=== PATIENT | male | born 1970 | race Caucasian/White ===

== ENCOUNTER 2019-05-30 11:55 | Emergency (ER) | payer OTHER ==
[~2019-05-30] VITALS: Ht 182.9 cm; Wt 107.5 kg
[~2019-05-30 11:55] MED LIST: APAP650; ASPERCREME177.4 ML; ATIVAN0.5 MG PO; BENZTROPINE MES1 MG PO; CYCLOBENZAPRINE5 MG; CYMBALTA60 MG PO; DEPAKOTE ER500 MG PO; HYDROCODONE-AP1 EAC6; KEPPRA 500 MG500 M1 PO; LORATIDINE 10 M10 M1; LORAZEPAM 22 MG/1 ML INJECTION; MI ACID LIQUID355 ML; MILK OF MA2400 MG/10; MUCINEX TA600 MG/TA2; MULTIVITAMINS1 EAC7; NAPROSYN500 M1 PO; REMERON15 MG PO; RESTORIL7.5 MG PO; SENNA-LAX8.6 MG PO; SEROQUEL 50 MG50 MG; SEROQUEL XR50 MG PO; TRAZODONE HCL100 MG PO; VISTARIL 25 MG25 M1 PO; VITAMIN D3400 UNIT; VITAMIN D3400 UNIT PO; WELLBUTRIN SR150 MG PO; ZYPREXA 5 MG TAB5 M1 PO
[2019-05-30 12:19] LABS: ABSOLUTE NEUTROPHILS 6.1 thou/uL (1.4-8.2); EOSINOPHILS 12.4 % (0.0-3.0); HEMATOCRIT 41.7 % (42.0-52.0); HEMOGLOBIN 14.1 gm/dL (14.0-18.0); LYMPHOCYTES 32.3 % (24.0-44.0); MCH 31.2 pg (26.0-34.0); MCHC 33.7 g/dL (28.0-37.0); MCV 92.8 fL (80.0-100.0); POLYS 49.3 % (36.0-66.0); RDW 12.7 % (10.5-14.5); WBC 12.3 thou/uL (4.0-11.0)
[2019-05-30 12:28] LABS: CALCIUM 9.5 mg/dL (8.5-10.1); CREATININE 1.6 mg/dL (0.7-1.3); POTASSIUM 4.1 mmol/L (3.5-5.1)
[2019-05-30 12:33] LABS: ALBUMIN 4.1 g/dL (3.4-5.0); TOTAL BILIRUBIN 0.3 mg/dL (<0.1-1.0); TOTAL PROTEIN 7.8 g/dL (6.4-8.2)
[2019-05-30 12:46] LABS: PLATELET COUNT 230 thou/uL (150-400)
[2019-05-30 12:47] LABS: LARGE PLATELETS RARE
[2019-05-30 14:15] LABS: URINE BLOOD NEGATIVE (Negative); URINE CLARITY CLEAR; URINE COLOR YELLOW; URINE GLUCOSE-RANDOM* NEGATIVE (Negative); URINE KETONES 1+ (Negative); URINE LEUKOCYTES NEGATIVE (Negative); URINE NITRITE NEGATIVE (Negative); URINE PROTEIN (DIPSTICK) 1+ (Negative); URINE SPECIFIC GRAVITY 1.025 (1.005-1.035)
[2019-05-30 14:18] LABS: ICTOTEST (BILI CONFIRMATORY) Negative (Negative); URINE BILIRUBIN NEGATIVE (Negative)
[2019-05-30 14:24] LABS: BACTERIA None Seen /HPF (None Seen); SQUAMOUS None Seen /LPF (0-3); URINE RBC None Seen /HPF (0-2); URINE WBC None Seen /HPF (0-5)
[2019-05-30 14:25] LABS: HYALINE CASTS 0-3 Few /LPF (None Seen)
[2019-05-30 14:31] LABS: CRYSTALS None Seen /LPF (None Seen)
[2019-05-30 16:10] VITALS: BP 119/74
--- NOTE | 2019-06-01 15:10 | EKG ---
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: [facility] : 1970 Requested By: Marcy Kerns Order Number: [id number] MD: Carlos Ray Measurements Intervals [place] Rate: 113 P: 59 ID: [id number] QRS: 44 QRSD: 79 T: 66 QT: 331 QTc: 454 Interpretive Statements Sinus tachycardia Poor R wave progression Compared to ECG 02/14/2016 13:48:34 Heart rate has increased Electronically Signed On 06-01-2019 15:10:06 CDT by Carlos Ray [email or web address] ��������������������������������������������� <ELECTRONICALLY SIGNED> ���������������������������������������� By: Carlos Ray MD, [facility] ��������������������������������������������� 06/01/19 1510 1202 1202 Carlos Ray MD, FACC /EPI
== END 2019-05-30 16:10 | disposition home or self-care (01) ==
LOC: ER 11:55
PROVIDERS: Emergency Medicine
DX: G40.89 Other seizures (principal); F25.0 Schizoaffective disorder, bipolar type; G89.29 Other chronic pain; F39 Unspecified mood [affective] disorder; F32.9 Major depressive disorder, single episode, unspecified; F41.9 Anxiety disorder, unspecified; F17.210 Nicotine dependence, cigarettes, uncomplicated; Z88.1 Allergy status to other antibiotic agents

== ENCOUNTER 2019-12-27 08:45 | Emergency (ER) | payer OTHER ==
[~2019-12-27] VITALS: Ht 182.9 cm; Wt 83.9 kg
[~2019-12-27 08:45] MED LIST changes: +ATIVAN0.5 M1 PO; -ATIVAN0.5 MG PO; -VITAMIN D3400 UNIT PO; +VITAMIN D35000 UNI2 PO
[2019-12-27 09:19] LABS: ABSOLUTE NEUTROPHILS 13.4 thou/uL (1.4-8.2); BASOPHILS 0.6 % (0.0-2.0); EOSINOPHILS 3.2 % (0.0-3.0); HEMATOCRIT 41.5 % (42.0-52.0); HEMOGLOBIN 13.7 gm/dL (14.0-18.0); LYMPHOCYTES 16.2 % (24.0-44.0); MCV 93.9 fL (80.0-100.0); MONOCYTES 3.8 % (1.0-8.0); PLATELET COUNT 195 thou/uL (150-400); POLYS 76.2 % (36.0-66.0); RBC 4.42 mil/uL (4.50-6.00); RDW 13.2 % (10.5-14.5); WBC 17.6 thou/uL (4.0-11.0)
[2019-12-27] MEDS ORDERED: INGREZZA80 MG PO (09:20)
[2019-12-27] MEDS ORDERED: DIVALPROEX SOD250 M1 PO (09:20)
[2019-12-27] MEDS ORDERED: ACID CONTROLLER20 MG PO (09:21)
[2019-12-27 09:23] LABS: CALCIUM 9.5 mg/dL (8.5-10.1); CREATININE 1.5 mg/dL (0.7-1.3); POTASSIUM 3.7 mmol/L (3.5-5.1)
[2019-12-27] MEDS ORDERED: KEPPRA XR500 MG PO (09:26)
[2019-12-27] MEDS ORDERED: ATROVENT HFA14 GM INH (09:27)
[2019-12-27] MEDS ORDERED: DIVALPROEX SOD250 M3 PO (09:28)
[2019-12-27] MEDS ORDERED: PROAIR HFA8.5 GM INH (09:29)
[2019-12-27 09:30] LABS: ALBUMIN 4.3 g/dL (3.4-5.0); MAGNESIUM 1.9 mg/dL (1.8-2.4); TOTAL BILIRUBIN 0.4 mg/dL (<0.1-1.0); TOTAL PROTEIN 7.9 g/dL (6.4-8.2)
[2019-12-27 09:36] LABS: AMP/METHAMP Negative (Negative); BARBITURATES Negative (Negative); BENZODIAZEPINES Negative (Negative); COCAINE Negative (Negative); METHADONE Negative (Negative); OPIATES POSITIVE (Negative); PCP Negative (Negative)
[2019-12-27 10:33] VITALS: BP 133/66
== END 2019-12-27 11:54 | disposition home or self-care (01) ==
LOC: ER 08:45
PROVIDERS: Emergency Medicine
DX: G40.909 Epilepsy, unspecified, not intractable, without status epilepticus (principal); F20.9 Schizophrenia, unspecified; Z51.81 Encounter for therapeutic drug level monitoring; F31.9 Bipolar disorder, unspecified; F41.9 Anxiety disorder, unspecified; F17.210 Nicotine dependence, cigarettes, uncomplicated; G89.29 Other chronic pain; Z88.1 Allergy status to other antibiotic agents

== ENCOUNTER 2020-11-05 18:29 | Emergency (ER) | payer OTHER ==
[~2020-11-05] VITALS: Ht 172.7 cm; Wt 104.3 kg
[~2020-11-05 18:29] MED LIST changes: +ACID CONTROLLER20 MG PO; +ATROVENT HFA14 GM INH; +DIVALPROEX SOD250 M1 PO; +DIVALPROEX SOD250 M3 PO; +INGREZZA80 MG PO; +KEPPRA XR500 MG PO; +PROAIR HFA8.5 GM INH
[2020-11-06 00:45] VITALS: BP 110/74
== END 2020-11-06 00:45 | disposition home or self-care (01) ==
LOC: ER 18:29
DX: U07.1 COVID-19 (principal); S52.131A Displaced fracture of neck of right radius, initial encounter for closed fracture; F17.210 Nicotine dependence, cigarettes, uncomplicated; Z79.899 Other long term (current) drug therapy; Z88.1 Allergy status to other antibiotic agents; W19.XXXA Unspecified fall, initial encounter; Y93.89 Activity, other specified; Y92.89 Other specified places as the place of occurrence of the external cause; Y99.8 Other external cause status

== ENCOUNTER 2021-07-24 00:34 | Inpatient (IN) | payer OTHER ==
[2021-07-24] VITALS (7 sets, daily range): BP systolic 112–122; BP diastolic 45–79
[~2021-07-24] VITALS: Ht 175.3 cm; Wt 105.7 kg
--- NOTE | ~2021-07-24 | HC ---
[facility] [place] [address] CONSULTATION Name: SHANTI LAMAS Room #: 452-P [facility] IN M.R.#: [id number] Admission: 07/24/21 Attend Phys: Hector Moran MD Discharge: 07/28/21 Date of : 72 Report #: [id number] THIS REPORT FOR: cc: Kavon Dye MD, Dennis R MD Althoff,Christiano Power MD ~ DATE OF SERVICE: 07/25/2021 CHIEF COMPLAINT: Right lower extremity wound. HISTORY OF PRESENT ILLNESS: This is a 50-year-old male patient who is admitted to the hospital with schizoaffective disorder, bipolar disorder and cellulitic changes to his right lower extremity, and I have been asked see him with regard to wound care. The patient states he is having some pain in this area. He is unsure as to how long the issue has been going on. PAST MEDICAL HISTORY: Schizoaffective disorder, bipolar disorder, traumatic brain injury, chronic pain, dyskinesia, depression, seizure disorder. SOCIAL HISTORY: The patient is currently a daily smoker. No alcohol use. FAMILY HISTORY: Unknown. MEDICATIONS: Include Cymbalta, Naprosyn, Seroquel, Depakote, Ultram, Keppra, trazodone, ProAir, Tylenol, cholecalciferol, famotidine, gabapentin, melatonin. ALLERGIES: CODEINE, TETRACYCLINE. REVIEW OF SYSTEMS: CONSTITUTIONAL: The patient denies fever, chills, weight loss. NEUROLOGICAL: The patient denies focal weakness, numbness, tingling. EYES: The patient denies visual changes, redness, drainage. ENT: The patient denies earache, nasal drainage, sore throat. CARDIOVASCULAR: The patient denies chest pain, palpitation, diaphoresis. PULMONARY: The patient denies cough, shortness of breath. GASTROINTESTINAL: The patient denies nausea, vomiting, diarrhea or abdominal pain. ORTHOPEDIC: The patient complains of pain, swelling and blistering to the right lower extremity. Others systems in a 14-point review of systems are negative. PHYSICAL EXAMINATION: VITAL SIGNS: At this time include temperature 36.6, pulse 77, respiration of 18, blood pressure of 97/68. GENERAL: This is a well-developed male patient appears to be in minimal distress. [address] [address] CONSULTATION Name: SHANTI LAMAS Room #: 452- DIS IN M.R.#: [id number] Admission: 07/24/21 Attend Phys: Hector Moran MD Discharge: 07/28/21 Date of : 72 Report #: [id number] HEENT: Head normocephalic. Nose and throat clear. NECK: Supple. LUNGS: Clear. ABDOMEN:. Soft. Bowel sounds present. EXTREMITIES: Lower extremities demonstrate moderate erythema and a blister to the right lower extremity. The blister currently is intact. There is mild tenderness. Distal pulses are palpable. NEUROLOGIC: The patient is alert. He is disoriented. LABORATORY STUDIES: Sodium 141, potassium 3.8, chloride 107, CO2 of 26, BUN 15, creatinine 0.9, glucose 121. White blood cell count 17,000 with a hemoglobin of 12.2. CLINICAL IMPRESSION: 1. Cellulitis, right lower extremity. 2. Bulla, likely secondary to underlying cellulitis. 3. Affective disorder. 4. Traumatic brain injury. 5. Seizure disorder. RECOMMENDATIONS: At this point in time, we recommend continuation of IV antibiotics as ordered. Recommend topical AmLactin lotion. No specific bandaging or compression at this time. Border foam for protection to the blister of the right leg. I appreciate being asked to see him in consultation. By: 1323 0120 Christiano Hernandez MD /nt
--- NOTE | ~2021-07-24 | EMS ---
[address] [address] EMS Patient Care Report Name: SHANTI LAMAS Room #: 452-P ADM IN M.R.#: [id number] Admission: 07/24/21 Attend Phys: Hector Moran MD Discharge: Date of : 72 Report #: [id number] THIS REPORT FOR: //name// Report Transmitted: 07/25/2021 12:51 EMS Care Summary [place], [place]/[facility] Incident [id number] @ 07/24/2021 00:14 Incident Location [address] [facility] [address] Patient SHANTI LAMAS Male, 50 Years 1970 Patient Address [id number] [place] [address] [place] [address] Patient History Behavioral/Psychiatric Disorder,Seizures,Schizophrenia,Anxiety,Dysphagia,Insomnia, Patient Allergies Tetracycline, Patient Medications Other, Chief Complaint RIGHT LOWER LEG SWELLING Disposition Transported No Lights/[place] Dispatch Reason Sick Person Transported To [facility] Narrative SCENE: ON ARRIVAL PT FOUND AMBULATING DOWN HALLWAY AT ADDRESS PROVIDED. PT IS AWAKE AND ALERT WITH A GCS OF 15. STAFF REPORTS PT HAS NEW ONSET CONGESTION AND [address] [address] EMS Patient Care Report Name: SHANTI LAMAS Room #: 452-P ADM IN John.#: [id number] Admission: 07/24/21 Attend Phys: Hector Moran MD Discharge: Date of : 72 Report #: [id number] REDNESS AND SWELLING TO THE RIGHT LOWER LEG. PT SAT ON EMS STRETCHER. AMBULANCE: VITALS MONITORED. NO CHANGES. Initial Vitals @00:34P: 98,R: 18,BP: 118/70,Pain: 0/10,GCS: 15,Revised Trauma: 12, @00:22P: 98,R: 18,BP: 114/60,Pain: 0/10,GCS: 15,Revised Trauma: 12, Assessments @00:21MENTAL:No Abnormalities,SKIN:No Abnormalities,HEENT:Head/Face: No Abnormalities,Eyes: No Abnormalities,Neck/Airway: No Abnormalities,LUNG SOUNDS:General: No Abnormalities,Left Upper: No Abnormalities,Right Upper: No Abnormalities,Left Lower: No Abnormalities,Right Lower: No Abnormalities,ABDOMEN:General: No Abnormalities,Left Upper: No Abnormalities,Right Upper: No Abnormalities,Left Lower: No Abnormalities,Right Lower: No Abnormalities,PELVIS//GI:No Abnormalities,EXTREMITIES:Right Leg: Other,Left Arm: No Abnormalities,Right Arm: No Abnormalities,Left Leg: No Abnormalities,PULSE:NEURO:No Abnormalities,@00:34MENTAL:No Abnormalities,SKIN:No Abnormalities,HEENT:Head/Face: No Abnormalities,Eyes: No Abnormalities,Neck/Airway: No Abnormalities,LUNG SOUNDS:General: No Abnormalities,Left Upper: No Abnormalities,Right Upper: No Abnormalities,Left Lower: No Abnormalities,Right Lower: No Abnormalities,ABDOMEN:General: No Abnormalities,Left Upper: No Abnormalities,Right Upper: No Abnormalities,Left Lower: No Abnormalities,Right Lower: No Abnormalities,PELVIS//GI:No Abnormalities,EXTREMITIES:Right Leg: Other,Left Arm: No Abnormalities,Right Arm: No Abnormalities,Left Leg: No Abnormalities,PULSE:NEURO:No Abnormalities, Impression Acute Pain, not elsewhere classified Procedures @00:22StretcherResponse: Unchanged@00:20ALS AssessmentResponse: UnchangedSucceeded Timeline 00:13,Call Received 00:13,Dispatch Notified 00:14,Dispatched 00:15,En Route 00:18,On Scene 00:20,At Patient 00:20,ALS Assessment,Response: UnchangedSucceeded, 00:22,Stretcher,Response: Unchanged 00:22,BP: 114/60 M,PULSE: 98,RR: 18 R,SPO2: Ox,ETCO2: ,BG: ,PAIN: 0,GCS: 15, 00:23,Depart Scene 00:31,[place] [address] EMS Patient Care Report Name: SHANTI LAMAS Room #: 452-P ADM IN [facility]#: [id number] Admission: 07/24/21 Attend Phys: Hector Moran MD Discharge: Date of : 72 Report #: [id number] 00:34,BP: 118/70 M,PULSE: 98,RR: 18 R,SPO2: Ox,ETCO2: ,BG: ,PAIN: 0,GCS: 15, 00:41,Call Closed Disclaimer v1.1 Copyright 2020 [employer] This EMS Care Summary contains data elements from the applicable legal record (which may be displayed differently). It is designed to provide pertinent information for the following purposes: continuity of care, clinical quality, and state data reporting. The complete legal record is available to ED staff and administrators of the receiving hospital in [employer]'s Patient Tracker. All data is provided "as is."
[~2021-07-24 00:34] MED LIST changes: -MULTIVITAMINS1 EAC7; +SUPER THERAVIT1 EACH PO
[2021-07-24 02:04] LABS: AMP/METHAMP Negative (Negative); BARBITURATES Negative (Negative); BENZODIAZEPINES Negative (Negative); COCAINE Negative (Negative); METHADONE Negative (Negative); OPIATES Negative (Negative); PCP Negative (Negative)
[2021-07-24 02:46] LABS: ABSOLUTE NEUTROPHILS 14.5 thou/uL (1.4-8.2); BASOPHILS 0.3 % (0.0-2.0); EOSINOPHILS 0.5 % (0.0-3.0); HEMATOCRIT 41.1 % (42.0-52.0); LYMPHOCYTES 9.3 % (24.0-44.0); MCH 31.5 pg (26.0-34.0); MCHC 34.1 g/dL (28.0-37.0); MCV 92.4 fL (80.0-100.0); MONOCYTES 5.7 % (1.0-8.0); PLATELET COUNT 177 thou/uL (150-400); POLYS 84.2 % (36.0-66.0); RBC 4.45 mil/uL (4.50-6.00); RDW 13.8 % (10.5-14.5); WBC 17.2 thou/uL (4.0-11.0)
[2021-07-24 02:57] LABS: CALCIUM 9.6 mg/dL (8.5-10.1); CREATININE 1.4 mg/dL (0.7-1.3); POTASSIUM 3.5 mmol/L (3.5-5.1)
[2021-07-24 03:03] LABS: ALBUMIN 3.8 g/dL (3.4-5.0); DIRECT BILIRUBIN 0.2 mg/dL (<0.1-0.2); TOTAL BILIRUBIN 0.7 mg/dL (0.2-1.0); TOTAL PROTEIN 8.6 g/dL (6.4-8.2)
--- NOTE | 2021-07-24 11:32 | EKG ---
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: [place] : 1970 Requested By: Melia Sears Order Number: [id number] MD: Diogo Puente Measurements Intervals [place] Rate: 85 P: 54 NM: 174 QRS: 21 QRSD: 89 T: 53 QT: 355 QTc: 422 Interpretive Statements Sinus rhythm Compared to ECG 05/30/2019 12:02:37 Sinus tachycardia no longer present Poor R-wave progression no longer present Electronically Signed On 07-24-2021 11:32:37 CDT by Diogo Puente [email or web address] <ELECTRONICALLY SIGNED> By: Diogo Puente MD, [facility] 07/24/21 1132 0111 0111 Diogo Puente MD, FACC /EPI
[2021-07-24] MEDS ORDERED: DEPAKOTE ER500 M1 PO (12:42)
[2021-07-24] MEDS ORDERED: NEURONTIN 300M300 M2 PO (12:43)
[2021-07-24] MEDS ORDERED: LEVSIN0.125 MG PO (12:44)
[2021-07-24] MEDS ORDERED: ADVIL200 M1 PO (12:50)
[2021-07-24] MEDS ORDERED: MELATONIN3 M1 PO (13:36)
[2021-07-24] MEDS ORDERED: TRAMADOL 50 MG50 MG PO (13:37)
[2021-07-24] MEDS ORDERED: TRIHEXYPHENIDYL2 M1 PO (13:38)
[2021-07-24] MEDS ORDERED: TYLENOL325 M1 PO (17:32)
[2021-07-24] MEDS ORDERED: ATROVENT HFA14 GM INH (17:33)
[2021-07-24] MEDS ORDERED: TRAZODONE HCL50 MG PO (17:39)
[2021-07-24] MEDS ORDERED: KEPPRA 500 MG500 M1 PO (21:01)
--- NOTE | 2021-07-25 01:24 | NUR ---
UPON SHIFT REPORT, PT ROOM FAR FROM NURSES STATION, PT IMPULSIVE AND FORGETFUL OF LIMITATIONS. PT BROTHER, CLIFF AT BEDSIDE OBSERVED ASSISTING PT WITH TOILETING NEEDS. COORDINATED WITH BUSINESS CONTINUITY CONSULTANT, PT TRANSFERRED TO ROOM 452, NEAR NURSES STATION. UPON SHIFT ASSESSMENT, PT AOX3, TO PERSON, PLACE AND TIME. PT REPORTS 'I HAD A SEIZURE AT THE SENIOR LIVING' IN REGARDS TO SITUATION. PT WITH FORGETFULNESS AND RESTLESSNESS. PT REPORTS 8/10 LOWER BACK PAIN. PT RECEIVING SCHEDULED PO TRAMADOL TID WITH PRN PO APAP Q4HR AVAILABLE. PT DENIES SOB WHILE ON ROOM AIR. PT TOLERATING PO INTAKE OF FLUIDS AND REGULAR DIET WITHOUT ISSUE. PT WITH INTERMITTENT NAUSEA WITHOUT EMESIS. PT VOIDING PER URINAL. PT RESTING IN BED THROUGHOUT SHIFT, FREQUENT REPOSITIONING ENCOURAGED, PT NOTED TO SHIFT INDEPENDENTLY. SENSATION INTACT, CAPILLARY REFILL LESS THAN 3SEC, PERIPHERAL PULSES PALPABLE IN LUE, PULSES FAINT ELSEWHERE. +3 PITTING EDEMA NOTED TO RLE, NONWEEPING, IN ADDITION TO REDNESS AND WARMTH. PT ENCOURAGED TO NOTIFY STAFF FOR ALL NEEDS, CALL LIGHT WITHIN REACH, BED ALARM ON, BED LOCKED IN LOWEST POSITION, ROOM REMAINS NEAR NURSES STATION, FREQUENT MONITORING WILL CONTINUE.
[2021-07-25 06:27] LABS: HEMATOCRIT 36.6 % (42.0-52.0); HEMOGLOBIN 12.2 gm/dL (14.0-18.0); MCHC 33.4 g/dL (28.0-37.0); MCV 92.7 fL (80.0-100.0); RBC 3.95 mil/uL (4.50-6.00); RDW 13.9 % (10.5-14.5)
[2021-07-25 06:46] LABS: CALCIUM 8.7 mg/dL (8.5-10.1); CREATININE 0.9 mg/dL (0.7-1.3); POTASSIUM 3.8 mmol/L (3.5-5.1)
[2021-07-25 16:17] VITALS: BP 97/68
--- NOTE | 2021-07-25 18:35 | NUR ---
ASSUMED CARE OF PT AROUND 0700. PT RESTED IN ROOM THROUGHOUT THE DAY AND WAS CALM AND COOPERATIVE, VSS. PTS PAIN CONTROLLED WITH ORAL PAIN MEDS. HAVING TROUBLE INFUSING FLUIDS DUE TO PT CONTINUALLY BENDING ARM. ORAL INTAKE ADEQUATE. FALL PRECAUTIONS IN PLACE.
[2021-07-25 20:17] VITALS: BP 102/47
--- NOTE | 2021-07-26 06:16 | NUR ---
Assumed pt care at 1900. A/OX4,does have expressive aphasia at times but able to voice needs. C/o back pain,medicated per EMAR with relief reported. Pt's IV on RFA infiltrated,new IV inserted on LFA after 2 attempts by house sup. Needs reminders to call for help as needed b4 getting out of bed. Fall precauitons in place.
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
[2021-07-26 10:47] LABS: ABSOLUTE NEUTROPHILS 9.5 thou/uL (1.4-8.2); BASOPHILS 0.4 % (0.0-2.0); EOSINOPHILS 4.8 % (0.0-3.0); HEMOGLOBIN 12.3 gm/dL (14.0-18.0); LYMPHOCYTES 22.1 % (24.0-44.0); MCH 30.6 pg (26.0-34.0); MCHC 33.1 g/dL (28.0-37.0); MCV 92.5 fL (80.0-100.0); MONOCYTES 5.3 % (1.0-8.0); PLATELET COUNT 180 thou/uL (150-400); POLYS 67.4 % (36.0-66.0); WBC 14.1 thou/uL (4.0-11.0)
[2021-07-26 11:12] LABS: CALCIUM 8.7 mg/dL (8.5-10.1); CREATININE 0.9 mg/dL (0.7-1.3)
--- NOTE | 2021-07-26 16:47 | NUR ---
PT ADMITTED RELATED TO CELLULITIS. CM REVIEWED CHART AND SPOKE WITH CARE TEAM. CM CALLED AND SPOKE WITH PT'S GUARDIAN/BROTHER CLIFF. HE INDICATED THAT PT RESIDES AT [facility] AND THAT HE HAS BEEN THERE SINCE 2010. HE INDICATED THAT HE ANTICIPATES PT RETURNING THERE ONCE MEDICALLY STABLE. CM CALLED AND SPOKE WITH APERTURE MASK ETCHER AT [facility] THIS DAY [place] AND UPDATED HIM. HE FAXED COPY OF CLIFF'S GUARDIANHIP PAPERWORK. CM PLACED IT ON CHART. CARE TEAM INDICATED THEY ANTICAPTE PT BEING HERE A FEW MORE DAYS. PT IS ON IV UNASYN AND GETTING WC. CM FOLLOWING REGARDING DC PLANNING.
--- NOTE | 2021-07-26 18:30 | NUR ---
ASSUMED CARE OF PT AT 0700. THROUGHOUT THE DAY PT HAD NO COMPLAINTS AND RESTED QUIETLY IN ROOM. NO CONCERNS FOR THE PT TODAY, VSS. WORKS WELL WITH BOTH THERAPIES AND IS COMPLIANT WITH ALL DIRECTIONS. WILL CONTINUE TO MONITOR
[2021-07-26 19:27] VITALS: BP 104/43
[2021-07-27 05:33] LABS: CALCIUM 8.7 mg/dL (8.5-10.1); CREATININE 0.9 mg/dL (0.7-1.3); POTASSIUM 4.4 mmol/L (3.5-5.1)
--- NOTE | 2021-07-27 06:49 | NUR ---
Assumed pt care at 1900. A/OX4,does have expressive aphasia but able to make needs known. Up with SBA, unsteady at times. Pt had a shower at with set up assist. Pt upset and yelling at [employer] during shower and banged his door shut,comic writer approached pt afterwards and he apologized for his actions. Took all meds w/o any problems. Fall precautions in place
[2021-07-27 08:00] VITALS: BP 110/72
[2021-07-27 08:49] LABS: HEMATOCRIT 33.3 % (42.0-52.0); HEMOGLOBIN 11.3 gm/dL (14.0-18.0); MCH 31.3 pg (26.0-34.0); MCHC 33.8 g/dL (28.0-37.0); MCV 92.6 fL (80.0-100.0); RBC 3.6 mil/uL (4.50-6.00); RDW 13.7 % (10.5-14.5); WBC 10.7 thou/uL (4.0-11.0)
--- NOTE | 2021-07-27 16:10 | NUR ---
ID INDICATED THAT THEY WERE GOING TO TRANSITION PT TO [facility] THIS DAY. ANTICIPATE THAT PT WILL LIKELY BE MEDICALLY STABLE TO DC BACK TO [facility] TOMORROW. CM FOLLOWING REGARDING DC PLANNING.
[2021-07-27 19:53] VITALS: BP 118/70
--- NOTE | 2021-07-28 04:28 | NUR ---
Pt A/OX4,VSS. C/o pain on back/legs,medicated per EMAR with relief reported. Ambien given per request and pt able to get some sleep for a couple hours. Up with SBA,needs reminders to call for help. Redness persists on RLE. Pt resting at this time w/o distress noted,will continue to monitor pt.
[2021-07-28 05:55] LABS: HEMATOCRIT 35.8 % (42.0-52.0); HEMOGLOBIN 11.9 gm/dL (14.0-18.0); MCH 31.4 pg (26.0-34.0); MCHC 33.4 g/dL (28.0-37.0); RBC 3.81 mil/uL (4.50-6.00); RDW 13.3 % (10.5-14.5); WBC 10.4 thou/uL (4.0-11.0)
[2021-07-28 06:21] LABS: CALCIUM 8.8 mg/dL (8.5-10.1); CREATININE 0.9 mg/dL (0.7-1.3); POTASSIUM 4.6 mmol/L (3.5-5.1)
[2021-07-28 09:00] VITALS: BP 125/86
[2021-07-28] MEDS ORDERED: AUGMENTIN 875-1 EACH PO (15:01)
[2021-07-28 15:26] VITALS: BP 111/90
--- NOTE | 2021-07-28 15:56 | NUR ---
CARE TEAM INDICATED THAT PT IS MEDICALLY STABLE TO DC BACK TO [facility] THIS DAY. ORDERS AND NEGATIVE COVID TESTS FAXED. CM ARRANGED [facility] TRANSPORT THIS DAY. POKER ROOM MANAGER BETWEEN 3:49-7:49. PT AND HIS BROTHER/GUARDIAN ARE AWARE AND AGREEABLE. NURSE GIVEN NUMBER FOR REPORT. NO OTHER CM INTERVENTION INDICATED. CASE CLOSED.
--- NOTE | 2021-07-28 18:57 | NUR ---
PT CARE AND ROUNDS COMPLETED PER PROTOCOL. PAIN CONTROLLED WITH ORAL PAIN MEDICATION. PT RESTING PEACEFULLY THROUGHOUT SHIFT. SEVERAL ATTEMPTS MADE TO FACILITY TO ATTEMPT TO GIVE REPORT, NO ANSWER. PT LEFT FLOOR TO FACILITY WITH IMMIGRATION MANAGER PER [employer]. ALL PERSONAL ITEMS GIVEN TO PATIENT PRIOR TO DISMISSAL.
== END 2021-07-28 19:36 | DRG 871 ==
LOC: ER 00:34 → EROBS 03:30 → 4W 03:30
PROVIDERS: Emergency Medicine; Nurse Practitioner Family; ADMIT Hospitalist; ATTEND Hospitalist
DX: A41.9 Sepsis, unspecified organism (principal); N17.0 Acute kidney failure with tubular necrosis; L03.115 Cellulitis of right lower limb; R45.851 Suicidal ideations; G40.909 Epilepsy, unspecified, not intractable, without status epilepticus; I87.8 Other specified disorders of veins; G89.4 Chronic pain syndrome; F41.9 Anxiety disorder, unspecified; F17.210 Nicotine dependence, cigarettes, uncomplicated; F39 Unspecified mood [affective] disorder; F25.0 Schizoaffective disorder, bipolar type; I87.2 Venous insufficiency (chronic) (peripheral); Z87.820 Personal history of traumatic brain injury; Z88.1 Allergy status to other antibiotic agents; Z88.6 Allergy status to analgesic agent; Z79.899 Other long term (current) drug therapy; Z23 Encounter for immunization; Z20.822 Contact with and (suspected) exposure to COVID-19
CPT/HCPCS: 10040

== ENCOUNTER 2021-08-04 10:11 | Inpatient (IN) | payer OTHER ==
[~2021-08-04] VITALS: Ht 175.3 cm; Wt 96.6 kg
--- NOTE | ~2021-08-04 | EMS ---
[address] [address] EMS Patient Care Report Name: SHANTI LAMAS Room #: REG ANSELMO Mock#: [id number] Admission: 08/04/21 Attend Phys: Discharge: Date of : 72 Report #: [id number] THIS REPORT FOR: //name// Report Transmitted: 08/04/2021 10:20 EMS Care Summary [place], [place]/[facility] Incident [id number] @ 08/04/2021 09:42 Incident Location [address] [facility] Patient SHANTI LAMAS Male, 50 Years 1970 Patient Address [id number] [place] [address] [address] [place] [address] Patient History Behavioral/Psychiatric Disorder,Seizures,Schizophrenia,Anxiety,Dysphagia,Insomnia, Patient Allergies Tetracycline, Patient Medications Other, Chief Complaint SWELLING REDNESS TO RIGHT LOWER LEG Disposition Transported No Lights/[place] Dispatch Reason Sick Person Transported To [facility] Narrative SCENE: ON ARRIVAL PT FOUND IN THE LOBBY OF ADDRES PROVIDED. PT IS AWAKE AND ALERT WITH A GCS OF 15. PT HAS 07/28/2021 ADMITTED TO [facility]. RELEASED P ANTIBIOTICS. PLACED ON AMOXICILLIN. INCREASED SWELLING TODAY. [address] [address] EMS Patient Care Report Name: SHANTI LAMAS Room #: EVENS Mock#: [id number] Admission: 08/04/21 Attend Phys: Discharge: Date of : 72 Report #: [id number] AMBULANCE: VITALS MONITORED. NO CHANGES. Initial Vitals @09:59P: 87,R: 18,BP: 132/79,Pain: 2/10,GCS: 15,Revised Trauma: 12, @10:07P: 88,R: 18,BP: 136/74,GCS: 15,Revised Trauma: 12, Assessments @09:56MENTAL:No Abnormalities,SKIN:No Abnormalities,HEENT:Head/Face: No Abnormalities,Eyes: No Abnormalities,Neck/Airway: No Abnormalities,LUNG SOUNDS:General: No Abnormalities,Left Upper: No Abnormalities,Right Upper: No Abnormalities,Left Lower: No Abnormalities,Right Lower: No Abnormalities,ABDOMEN:General: No Abnormalities,Left Upper: No Abnormalities,Right Upper: No Abnormalities,Left Lower: No Abnormalities,Right Lower: No Abnormalities,PELVIS//GI:No Abnormalities,EXTREMITIES:Right Leg: Edema,Right Leg: Other,Left Arm: No Abnormalities,Right Arm: No Abnormalities,Left Leg: No Abnormalities,PULSE:NEURO:@10:03MENTAL:No Abnormalities,SKIN:No Abnormalities,HEENT:Head/Face: No Abnormalities,Eyes: No Abnormalities,Neck/Airway: No Abnormalities,LUNG SOUNDS:General: No Abnormalities,Left Upper: No Abnormalities,Right Upper: No Abnormalities,Left Lower: No Abnormalities,Right Lower: No Abnormalities,ABDOMEN:General: No Abnormalities,Left Upper: No Abnormalities,Right Upper: No Abnormalities,Left Lower: No Abnormalities,Right Lower: No Abnormalities,PELVIS//GI:No Abnormalities,EXTREMITIES:Right Leg: Edema,Left Arm: No Abnormalities,Right Arm: No Abnormalities,Left Leg: No Abnormalities,PULSE:NEURO: Impression Extremity Pain Procedures @09:55ALS AssessmentResponse: UnchangedSucceeded@09:58StretcherResponse: Unchanged Timeline 09:41,Call Received 09:41,Dispatch Notified 09:42,Dispatched 09:45,En Route 09:49,On Scene 09:55,At Patient 09:55,ALS Assessment,Response: UnchangedSucceeded, 09:58,Stretcher,Response: Unchanged 09:59,BP: 132/79 M,PULSE: 87,RR: 18 R,SPO2: Ox,ETCO2: ,BG: ,PAIN: 2,GCS: 15, 09:59,Depart Scene 10:07,BP: 136/74 M,PULSE: 88,RR: 18 R,SPO2: Ox,ETCO2: ,BG: ,PAIN: ,GCS: 15, 10:07,At Destination [address] [address] EMS Patient Care Report Name: SHANTI LAMAS Room #: REG [facility].#: [id number] Admission: 08/04/21 Attend Phys: Discharge: Date of : 72 Report #: [id number] 10:17,Call Closed Disclaimer v1.1 Copyright 2020 [employer] This EMS Care Summary contains data elements from the applicable legal record (which may be displayed differently). It is designed to provide pertinent information for the following purposes: continuity of care, clinical quality, and state data reporting. The complete legal record is available to ED staff and administrators of the receiving hospital in [facility]'s Patient Tracker. All data is provided "as is."
[~2021-08-04 10:11] MED LIST changes: +ADVIL200 M1 PO; +AUGMENTIN 875-1 EACH PO; +DEPAKOTE ER500 M1 PO; +LEVSIN0.125 MG PO; +MELATONIN3 M1 PO; +NEURONTIN 300M300 M2 PO; +TRAMADOL 50 MG50 MG PO; +TRAZODONE HCL50 MG PO; +TRIHEXYPHENIDYL2 M1 PO; +TYLENOL325 M1 PO
[2021-08-04 10:17] VITALS: BP 139/65
--- NOTE | 2021-08-04 11:34 | NUR ---
IV ACCESS HERE TO INITIATE IV
[2021-08-04 11:45] LABS: ABSOLUTE NEUTROPHILS 11.7 thou/uL (1.4-8.2); BASOPHILS 1.1 % (0.0-2.0); EOSINOPHILS 0.7 % (0.0-3.0); HEMATOCRIT 31.1 % (42.0-52.0); HEMOGLOBIN 10.5 gm/dL (14.0-18.0); LYMPHOCYTES 14.6 % (24.0-44.0); MCH 31.3 pg (26.0-34.0); MCHC 33.9 g/dL (28.0-37.0); MCV 92.4 fL (80.0-100.0); MONOCYTES 7.9 % (1.0-8.0); PLATELET COUNT 440 thou/uL (150-400); POLYS 75.7 % (36.0-66.0); RBC 3.37 mil/uL (4.50-6.00); RDW 13.4 % (10.5-14.5); WBC 15.4 thou/uL (4.0-11.0)
[2021-08-04 12:08] LABS: CALCIUM 8.8 mg/dL (8.5-10.1); CREATININE 0.9 mg/dL (0.7-1.3); POTASSIUM 4.2 mmol/L (3.5-5.1)
[2021-08-04 16:28] VITALS: BP 128/67
[2021-08-04 17:20] VITALS: BP 131/65
--- NOTE | 2021-08-04 17:25 | NUR ---
PATIENT ARRIVED TO 4S @ 1700. A/O X 4. ROOM AIR. ONE ASSIST WITH TRANSFERS. FROM [facility]. 20 G LEFT FOREARM. LEFT LEG CELLULITIS -RED, SWOLLEN, WARM, TIGHT. PAIN TO LEFT LEG 9/10. LEFT EYE BLACK, LEFT FOREARM BRUISED. PATIENT ANSWERED ALL SUICDE QUESTIONS YES THAT PROMPTED 1:1. DIGITAL PROGRAM MANAGER AIRAM NOTIFIED AND DR. OLVERA CALLED AND WILL ORDER A PSYCH CONSULT AND DOESNT THINK PATIENT NEEDS A 1:1 AT THIS TIME. PATIENT REQUESTED A PSYCH CONSULT HIMSELF.
[2021-08-04 19:17] VITALS: BP 125/45
--- NOTE | 2021-08-05 02:47 | NUR ---
ASSUMED CARE OF PT AT 1900. BEDSIDE REPORT RECIEVED. ROSE ASSESSMENT COMPLETE. VSS. PT C/O 08/07 RLE PAIN D/T CELLULITIS. RLE IS RED, HOT, SWOLLEN. ID CAME BY TO SEE PT. CLEANSED RLE, APPLIED XEROFORM, ABDS, KERLIXE WRAPPED TO UP LEG. PT IS SPEAKIG RAPID JUMBLED SENTENCES AND HAS TICS AND TREMORS D/T TARDIVE DYSKINESIA. PROVIDED THERAPUETIC COMMUNICATION C PT AND ATTEMPTED TO SETTLE ANXIETY. PT CONSTANTLY TRYING TO GET UP OR DELORES C IV SITE, IV SETTINGS, ETC. SOMETIMES REDERICTABLE. CONTINUING TO PROVIDE SAFETY GUIADANCE AND PT EDUCATION. MEDS ADMINISTERED ORDERED IN DEC. ALL NEEDS MET. CALL LIGHT INREACH, HIGH FALL PRECAUTIONS INPLACE.
--- NOTE | 2021-08-05 06:38 | NUR ---
NICK Coley PHARMACIST GILBERTO ON PXYUS I PULLED 2 NORCO ON WRONG PT 439 AND ADMINISTERED 1 NORCO TO 442, BC I REALIZED THAT PT ONLY HAD ORDER FOR 1 NORCO. RETURNED 1 NORCO BACK UNDER 439 BC 442 DID NOT HAVE ORDER FOR 2 NORCOS. NISHANT RN WITNESSEED MY RETURN AND GILBERTO PHARMACIST AND PHARM TECHS SPOKE C ON PHONE ON WHAT TO DO
--- NOTE | 2021-08-05 08:07 | NUR ---
I CONCUR WITH THE ASSESSMENT AND NOTES OF SALVADOR NASSAR.
[2021-08-05 08:10] VITALS: BP 144/74
--- NOTE | 2021-08-05 09:14 | NUR ---
ASSESSMENT: CM REVIEWED CHART AND SPOKE WITH PT AT THE BEDSIDE. PT WAS ADMITTED DUE TO INCREASED CELLULITIS. PT WAS RECENTLY HERE AT [facility] AND DISCHARGED 07/28 BACK TO [facility] ON AMOXICILLIN BUT HAS HAD INCREASED SWELLING. PT IS A LTC RESIDENT AT [facility]. PT HAS HX OF TBI. CM ATTEMPTED TO CONTACT PATIENTS BROTHER/DPOA CLIFF [phone] BUT UNABLE TO REACH AND VM WAS LEFT. CM FAXED UPDATED CLINICAL TO [facility]. PT IS CURRENTLY ON IV ANBX AND ID IS CONSULTED AND FOLLOWING. PT WILL LIKELY BE UNABLE TO RETURN TO [facility] UNTIL HE IS OFF IV ANBX DUE TO FAICLITY PROTOCOL. BAKARI IS THE ARCHEOLOGIST AT [facility] AND CAN BE REACHED AT [phone] OR [phone] WITH ANY QUESTIONS. CM WILL CONTINUE TO FOLLOW TO ASSIST NEEDED.
[2021-08-05 15:01] LABS: CALCIUM 9.3 mg/dL (8.5-10.1); CREATININE 0.9 mg/dL (0.7-1.3); POTASSIUM 4.2 mmol/L (3.5-5.1)
[2021-08-05 15:58] LABS: HEMATOCRIT 35.4 % (42.0-52.0); HEMOGLOBIN 11.7 gm/dL (14.0-18.0); RBC 3.77 mil/uL (4.50-6.00); RDW 13.6 % (10.5-14.5); WBC 10.4 thou/uL (4.0-11.0)
[2021-08-05 16:38] VITALS: BP 104/50
[2021-08-05 21:22] VITALS: BP 112/77
[2021-08-05 21:43] VITALS: BP 112/77
--- NOTE | 2021-08-06 01:45 | NUR ---
UPON SHIFT REPORT, PT SLEEPING. UPON SHIFT ASSESSMENT, PT AOX4 WITH INTERMITTENT FORGETFULNESS. TREMORS NOTED THROUGHOUT BODY. PT REPORTS 10/10 PAIN IN RLE. PT RECEIVING PRN PO OXYCODONE Q4HR WITH PRN PO APAP Q4HR AVAILABLE. PT DENIES SOB WHILE ON ROOM AIR. PT TOLERATING PO INTAKE OF FLUIDS AND REGULAR DIET WITHOUT ISSUE. PT WITHOUT NAUSEA OR EMESIS. PT VOIDING PER URINAL. PT RESTING IN BED THROUGHOUT SHIFT, FREQUENT REPOSITIONING ENCOURAGED, PT NOTED TO SHIFT INDEPENDENTLY. SENSATION INTACT, CAPILLARY REFILL LESS THAN 3SEC, PERIPHERAL PULSES PALPABLE IN ALL EXTREMITIES. WOUND CARE PERFORMED ON RLE, TOLERATED WELL. PT ENCOURAGED TO NOTIFY STAFF FOR ALL NEEDS, CALL LIGHT WITHIN REACH, BED ALARM ON, BED LOCKED IN LOWEST POSITION, FREQUENT MONITORING WILL CONTINUE.
[2021-08-06 06:36] LABS: HEMATOCRIT 32.5 % (42.0-52.0); HEMOGLOBIN 10.9 gm/dL (14.0-18.0); MCH 31.3 pg (26.0-34.0); MCHC 33.6 g/dL (28.0-37.0); MCV 93.3 fL (80.0-100.0); RBC 3.49 mil/uL (4.50-6.00); RDW 13.6 % (10.5-14.5); WBC 8.1 thou/uL (4.0-11.0)
[2021-08-06 06:57] LABS: CALCIUM 8.7 mg/dL (8.5-10.1); CREATININE 0.9 mg/dL (0.7-1.3); POTASSIUM 4.1 mmol/L (3.5-5.1)
[2021-08-06 07:50] VITALS: BP 116/66
[2021-08-06 15:27] VITALS: BP 106/57
--- NOTE | 2021-08-06 19:51 | NUR ---
ASSUMED PT CARE THIS AM. PT IS ALERT & ORIENTED X4 BUT FORGETFUL AT ITMES. PT HAS IV SITE ON LFA RUNNING NS @75ML/HR. PT USES URINAL. GIVEN NICOTINE PATCH AND BENADRYL THIS AM PER PT REQUEST. PT IS ON ROOM AIR. DID WOUND CARE ON RLE WITH NS, AMLACTION LOTION, XEROFORM, KERLIX AND NAHEED. PT LEG ELEVATED. GIVEN PAIN MEDICATION PER PT REQUEST. PT ON THE BED, BED ON THE LOWEST POSITION, SIDE RAILS UP, CALL LIGHT WITHIN REACH. WILL CONTINUE TO MONITOR PT. FOLLOW POC.
[2021-08-06 20:00] VITALS: BP 152/49
--- NOTE | 2021-08-07 04:15 | NUR ---
PT IS A/O X4 AND IS UP WITH ASSISTANCE BUT STATES HE IS IN TOO MUCH PAIN TO AMBULATE. VSS. AFEBRILE. MEDICATIONS GIVEN PER MAR. C/O PAIN AND ITCHING. PRN PAIN AND BENEDRYL GIVEN DIRECTED. FALL PRECAUTIONS IN PLACE, CALL LIGHT IS WITHIN REACH. FALL PRECAUTIONS IN PLACE, CALL LIGHT IS WITHIN REACH.
[2021-08-07 08:50] VITALS: BP 113/55
--- NOTE | 2021-08-07 11:07 | NUR ---
ASSUMED PT CARE THIS AM. PT IS ALERT & ORIENTED X4 BUT FORGETFUL AT TIMES. PT USES URINAL. DID WOUND CARE ON RLE WITH NS, AMLACTIN LOTION, XEROFORM, ABD, KERLIX AND NAHEED. PT C/O OF ITCHING AND PAIN. GIVEN BENADRYL AND PAIN MEDICATION PER PT REQUEST. EDUCATED PT ABOUT NOT TO REMOVE IV AND WOUND DRESSING. TRIED TO PLACED AN IV THIS AM BUT NO LUCK. CALLED IV TEAM TO PLACE AN IV. PT HAS IV ON RFA. INFUSING NS AND ANTIBIOTICS PER ORDERED. WILL CONTINUE TO MONITOR PT. FOLLOW POC.
[2021-08-07 16:25] VITALS: BP 110/87
--- NOTE | 2021-08-07 17:07 | NUR ---
DISCUSSED MIDLINE PLACEMENT WITH THE PATIENT AND HE AGREED. HE HAVE HAD MULTIPLE PERIPHERAL LINES AND IT DIFFICULT TO OBTAIN AND MAINTAIN IV ACCESS. THE LEFT UPPER ARM BASILIC WAS WIDLEY PATENT. A#4F MIDLINE WAS TRIMMED TO 14CM AND ADVANCED WITHOUT DIFFICULTY. NO CALL BACK FROM THE DPOA FOR PICC CONSENT SO A MIDLINE WAS PLACED AT THIS TIME FOR ACCESS
[2021-08-07 19:30] VITALS: BP 105/81
[2021-08-07 21:15] VITALS: BP 105/81
[2021-08-08 04:47] VITALS: BP 131/54
--- NOTE | 2021-08-08 05:11 | NUR ---
UPON SHIFT ASSESSMENT, PT AOX4. PT REPORTS 9/10 IN RLE. PT RECEIVING PRN PO OXYCODONE Q4HR. PT DENIES SOB WHILE ON ROOM AIR. PT TOLERATING PO INTAKE OF FLUIDS AND REGULAR DIET WITHOUT ISSUE. PT WITHOUT NAUSEA OR EMESIS. PT VOIDING PER URINAL. PT RESTING IN BED THROUGHOUT SHIFT, FREQUENT REPOSITIONING ENCOURAGED, PT NOTED TO SHIFT INDEPENDENTLY. PT WITH TREMORS THROUGHOUT BODY. SENSATION INTACT, CAPILLARY REFILL LESS THAN 3SEC, PERIPHERAL PULSES PALPABLE. UPON ROUNDING, PT NOTED TO HAVE REMOVED DRESSING TO RLE, REPORTING CAUSE DRESSING WAS ITCHY. PROVIDED REASSURANCE TO PT THAT RLE WILL BE REDRESSED. PT RECEIVING PRN PO BENADRYL Q8HR. PT ENCOURAGED TO NOTIFY STAFF FOR ALL NEEDS, CALL LIGHT WITHIN REACH, BED ALARM ON, BED LOCKED IN LOWEST POSITION, FREQUENT MONITORING WILL CONTINUE.
[2021-08-08 07:22] VITALS: BP 127/62
--- NOTE | 2021-08-08 14:44 | NUR ---
Discussed during los wit the hospitalist. Possible ready for dc back to [facility] tomorrow. He can not go back on IV ABX. Cm left message for zander to call back r/t updates.
[2021-08-08 15:25] VITALS: BP 118/53
--- NOTE | 2021-08-08 19:23 | NUR ---
Assumed pt care at 7am.Pt in bed most of the time with head upside down. Assessment completed.vss. Pt c/o rt leg pain and requested for pain med. oxycodone tab given as ordered.Dr Moran here,order noted. Pt tolerated meds and diet.Fall bundle in place.Will continue to monitor.
[2021-08-08 20:04] VITALS: BP 103/51
[2021-08-09 03:35] LABS: HEMATOCRIT 32.4 % (42.0-52.0); HEMOGLOBIN 10.7 gm/dL (14.0-18.0); MCH 30.5 pg (26.0-34.0); MCV 92.5 fL (80.0-100.0); RBC 3.5 mil/uL (4.50-6.00); RDW 13.4 % (10.5-14.5); WBC 8.7 thou/uL (4.0-11.0)
[2021-08-09 04:25] LABS: CALCIUM 8.9 mg/dL (8.5-10.1); POTASSIUM 4.1 mmol/L (3.5-5.1)
--- NOTE | 2021-08-09 06:13 | NUR ---
Pt A/OX4,VSS. C/o pain to RLE,medicated per EMAR with relief reported. Pt took dsg off leg,declined it being replaced left ALEXANDER at this time,area scabbed over. Midline in place,LUE with NS infusing w/o any problems noted. Voiding per urinal at NOC. Resting with RLE elevated d/t swelling. Will continue to monitor pt.
[2021-08-09 08:00] VITALS: BP 126/55
--- NOTE | 2021-08-09 12:19 | NUR ---
Spoke with FRED at [facility], they can come and pick him up as long as he in not on any IV medication. Can not do iv medication here per jacklyn IBARRA.
[2021-08-09 19:21] VITALS: BP 106/68
--- NOTE | 2021-08-09 19:35 | NUR ---
PT ASSESSED AT START OF SHIFT. PT RT LOWER LEG IMPROVING. MUCH LESS EDEMA AND REDDNESS. PT LIKES TO TAKE DSNG OFF. UP TO THE CHAIR FOR MOST OF SHIFT. USING URINAL TO VOID LARGE AMTS. EATING AND DRINKING WELL. PLAN FOR ANTIBIOTIC TO BE CHANGED TO PO PER DR. CHAPPELL.
[2021-08-10 04:16] VITALS: BP 116/71
--- NOTE | 2021-08-10 04:27 | NUR ---
RECEIVED CARE OF THIS PATIENT AT 1900. PATIENT ALERT AND ORIENTED X4. R LOWER EXT RED WITH PEELING GARCIA AND SCABBED OVER WOUNDS. C/O PAIN IN R LOWER EXT, MED GIVEN. SLEPT OFF AND ON DURING NIGHT.
[2021-08-10 09:10] VITALS: BP 104/70
[2021-08-10] MEDS ORDERED: NICOTINE1 EACH TRANSDERM (09:50)
[2021-08-10] MEDS ORDERED: AMMONIUM LACTA226 GM TOP (09:50)
[2021-08-10] MEDS ORDERED: GENTAMICIN SULF15 GM TOP (09:50)
[2021-08-10] MEDS ORDERED: CEPHALEXIN500 MG PO (09:53)
--- NOTE | 2021-08-10 10:36 | NUR ---
ASSUMED PT CARE THIS AM. PT IS ALERT & ORIENTED X4. REMIVED IV JOSE MIDLINE THIS AM DUE TO PT WILL BE GOING BACK TO FACILITY. PT USES URINAL. GIVEN BENADRYL FOR ITCHING AND PAIN MEDICATION PER PT REQUEST. PT IS ON ROOM AIR. CALLED FACILITY FOR HANDS OFF REPORT BUT NO ONE IS ANSWERING AND LEAVE A VOICE MESSAGE TO CALL ME BACK INSTEAD. AWAITING FOR TRANSPORTATION. WILL CONTINUE TO MONITOR PT.
--- NOTE | 2021-08-10 12:59 | NUR ---
Pt dc'd to SNF at [facility]. Skilled medicare benefits available. DC orders faxed to the DON and confirmed. They have sent a w/c van and staff to [place] the pt around 11 this am. Chart copy sent with the pt and nursing attempted x 2 to call report. The DON there is aware and will have staff call back for report.
--- NOTE | 2021-08-11 10:06 | HC ---
[facility] [place] [address] CONSULTATION Name: SHANTI LAMAS Room #: 439-[facility] IN M.R.#: [id number] Admission: 08/04/21 Attend Phys: Hector Moran MD Discharge: 08/10/21 Date of : 72 Report #: [id number] THIS REPORT FOR: cc: Kavon Dye MD, Dennis R MD Stephens, Thad A. MD ~ DATE OF SERVICE: 08/05/2021 WOUND CARE CONSULTATION PERSONAL PHYSICIAN: Dr. Kavon Dye. CHIEF COMPLAINT: Cellulitis of legs. HISTORY OF PRESENT ILLNESS: This is a 50-year-old white male who was just recently admitted for left lower extremity cellulitis and was treated with Unasyn and switched to Augmentin. The patient was sent back to his long-term care facility; however, the patient was supposed to have increasing pain from the leg and so the facility send him back to be reevaluated. The patient denies fevers or chills. The patient also complains of increased swelling on the lower extremities as well. PAST MEDICAL HISTORY: Significant for schizoaffective disorder, bipolar disease, traumatic brain injury, chronic pain syndrome, depression, seizure disorder and the recent episodes of cellulitis in his lower extremities. CURRENT MEDICATIONS: Multiple, reviewed the patient's medication list. DRUG ALLERGIES: CODEINE AND TETRACYCLINE. SOCIAL HISTORY: The patient smokes 1 pack of cigarettes daily. Denies alcohol use. Currently lives in a long-term care facility. FAMILY HISTORY: Not pertinent to current medical condition. REVIEW OF SYSTEMS: CONSTITUTIONAL: The patient denies fevers or chills. NEUROLOGIC: The patient denies numbness, tingling, weakness in arms or legs. EYES: No complaints. EARS, NOSE AND THROAT: No complaints. CARDIAC: The patient has chronic lower extremity edema, left leg greater than the right. RESPIRATORY: The patient denies shortness of breath, cough, wheezes. GASTROINTESTINAL: The patient denies nausea, vomiting, abdominal pain. GENITOURINARY: The patient denies urgency or frequency. MUSCULOSKELETAL: The patient has complaints of pain in bilateral legs, left [facility] [address] [place] [address] CONSULTATION Name: SHANTI LAMAS Room #: 439-P [facility] IN M.R.#: [id number] Admission: 08/04/21 Attend Phys: Hector Moran MD Discharge: 08/10/21 Date of : 72 Report #: [id number] greater than right. SKIN: There is chronic erythema and bullous lesions on bilateral lower extremities, left greater than right. PHYSICAL EXAMINATION: VITAL SIGNS: Stable. The patient is afebrile. GENERAL: This is alert and oriented x2, person and place, but not time, white male who is in no obvious distress. HEENT: Normocephalic, atraumatic. Mucous membranes are dry. Pupils are round. Sclerae are white. NECK: Without JVD. LUNGS: Clear. HEART: Regular. ABDOMEN: Soft, nontender. EXTREMITIES: The patient has 2+ edema in bilateral lower extremities. On the right lower extremity, there is a bullous lesion, increased erythema, warmth and tenderness. Distal pulses are otherwise intact. NEUROLOGIC: Cranial nerves II through XII grossly intact. Motor and sensory are grossly intact. LABORATORY DATA: White count 15.4, hemoglobin 10.5, albumin 3.8. IMPRESSION: 1. Ruptured bulla to the right lower extremity with associated cellulitis. 2. Schizoaffective disorder. 3. Seizure disorder. 4. Traumatic brain injury. 5. Generalized debility. PLAN: We will start AmLactin to the right lower extremity. Cover this with Xeroform, ABD, Kerlix and Syd with elevation daily. Antibiotics will be per infectious disease. We will continue all his home meds at this time ____. We will utilize physical and occupational therapy for strengthening. We will continue to maximize the patient's oral protein supplementation for healing. We will continue all other current medications. <ELECTRONICALLY SIGNED> By: Margarito Alexander MD 08/11/21 [id number] Margarito Alexander MD /nt
== END 2021-08-10 11:38 | DRG 603 ==
LOC: ER 10:11 → 4S 14:29 → EROBS 14:29 → 4S 16:29
PROVIDERS: Emergency Medicine; ADMIT Hospitalist; ATTEND Hospitalist
PROC: 05HB33Z Insertion of Infusion Device into Right Basilic Vein, Percutaneous Approach (ICD-10-PCS; principal; 2021-08-07)
DX: L03.115 Cellulitis of right lower limb (principal); G40.909 Epilepsy, unspecified, not intractable, without status epilepticus; F32.A Depression, unspecified; Z86.16 Personal history of COVID-19; F41.9 Anxiety disorder, unspecified; S80.821A Blister (nonthermal), right lower leg, initial encounter; I87.8 Other specified disorders of veins; Z20.822 Contact with and (suspected) exposure to COVID-19; F17.210 Nicotine dependence, cigarettes, uncomplicated; S06.9X0A Unspecified intracranial injury without loss of consciousness, initial encounter; F25.9 Schizoaffective disorder, unspecified; Z88.8 Allergy status to other drugs, medicaments and biological substances
CPT/HCPCS: 10102; 27000